=== PATIENT | male | born 1990 | race Caucasian/White ===

== ENCOUNTER 2018-03-27 08:40 | Day surgery (SDC) | payer BC ==
[~2018-03-27] VITALS: Ht 180.3 cm; Wt 76.0 kg
[2018-03-27] MEDS ORDERED: ACETAMINOPHEN 500 MG TABLET PO ONE (09:00)
[2018-03-27] MEDS ORDERED: LACTATED RINGERS 1,000 ML IV SCH (09:00)
[2018-03-27] MEDS ORDERED: LIDOCAINE-MPF 1%, 2ML INFIL ONE (09:00)
[2018-03-27] MEDS ORDERED: GABAPENTIN 300 MG CAPSULE PO ONE (09:00)
[2018-03-27] MEDS ORDERED: ONDANSETRON ODT 8 MG PO ONE (09:00)
[2018-03-27] MEDS ORDERED: IBUP-1222 PO (09:10)
[2018-03-27 09:18] VITALS: BP 127/78
[2018-03-27] MEDS ORDERED: FENTANYL PF 100 MCG/2ML ONE ×2 (11:12→12:27)
[2018-03-27] MEDS ORDERED: MIDAZOLAM 1 MG/ML, 2ML ONE (11:16)
[2018-03-27] MEDS ORDERED: BUPIVACAINE/PF-EPI 0.5% 1:200K ONE (11:27)
[2018-03-27] MEDS ORDERED: PROPOFOL 10 MG/ML, 20ML ONE (11:33)
[2018-03-27] MEDS ORDERED: CEFAZOLIN 1,000 MG ONE (11:33)
[2018-03-27] MEDS ORDERED: KETOROLAC 30 MG/1 ML ONE (12:27)
[2018-03-27] MEDS ORDERED: OXYcodone 5 MG/5 ML ORAL.SOL UDC ONE ×2 (12:28→12:41)
[2018-03-27] MEDS ORDERED: KETOROLAC 30 MG/1 ML IV PRN (12:30)
[2018-03-27] MEDS: FENTANYL PF 100 MCG/2ML IV PRN ×2 (12:30→12:41)
[2018-03-27] MEDS ORDERED: ONDANSETRON 2MG/ML, 2ML IV PRN (12:30)
[2018-03-27] MEDS ORDERED: HYDROmorphone 2 MG/ML, 1ML IVPush PRN (12:30)
[2018-03-27] MEDS: OXYcodone 5 MG/5 ML ORAL.SOL UDC PO PRN ×2 (12:31→12:42)
== END 2018-03-27 14:00 | disposition home or self-care (01) ==
LOC: OUT 08:40
PROVIDERS: ATTEND Orthopaedic Surgery
DX: M79.5 Residual foreign body in soft tissue (principal); Z88.5 Allergy status to narcotic agent; Z88.8 Allergy status to other drugs, medicaments and biological substances; Z72.89 Other problems related to lifestyle
CPT/HCPCS: 28192; 73620; 76000; J0690; J1885; J2250; J2704; J3010; J7120; Q0162

== ENCOUNTER 2018-08-27 16:00 | Emergency (ER) | payer BC, OTHER ==
[~2018-08-27] VITALS: Ht 175.3 cm; Wt 76.0 kg
[~2018-08-27 16:00] MED LIST: IBUP-1222 PO
[2018-08-27] MEDS ORDERED: LIDOCAINE-MPF 1%, 5ML ONE ×4 (16:18→18:23)
--- NOTE | 2018-08-27 16:29 | NUR ---
PT WHEELED TO ROOM WITH LACERATION TO HEAD OF PENIS ON MEATUS. PT STATES PAIN IS 10/10 AT THIS TIME. LACERATION IS BLEEDING. CHUCKS IN PLACE. PT TREMOROUS AND CRYING. PT HYPERTENSIVE AND TACHYCARDIC. EMT SETTING UP SUTURES. CALL LIGHT IN REACH. PT RESTING ON GURNEY.
[2018-08-27] MEDS ORDERED: DIPH,PERTUSS(ACELL),TET VAC/PF 0.5 ML IM-VACC ONE ×2 (16:30→16:51)
[2018-08-27] MEDS ORDERED: LIDOCAINE 1%, 10ML INFIL ONE (16:30)
[2018-08-27] MEDS ORDERED: HYDROcodone/APAP 10/325 MG TABLET ONE (16:51)
--- NOTE | 2018-08-27 16:56 | NUR ---
PT MEDICATED PER EMAR. PT RESTING ON GURNEY. STATES PAIN IS 10/10. VSS. CALL LIGHT IN REACH.
[2018-08-27] MEDS ORDERED: HYDROcodone/APAP 10/325 MG TABLET PO ONE (17:00)
[2018-08-27 17:50] VITALS: BP 126/82
--- NOTE | 2018-08-27 17:50 | NUR ---
PT RESTING ON GURNEY. AWARE OF POC. VSS. CALL LIGHT IN REACH. DENIES NEEDS.
[2018-08-27] MEDS ORDERED: NEOSPORIN OINT. PKT 1 PACKET TP ONE (18:30)
[2018-08-27] MEDS ORDERED: NEOSPORIN OINT. PKT 1 PACKET ONE (18:43)
--- NOTE | 2018-08-27 19:05 | NUR ---
REPORT TO LARA SUAREZ AND MICHELL JARRETT
--- NOTE | 2018-08-27 19:06 | NUR ---
LACERATION SUTURING PERFORMED AT BEDSIDE BY DR. DIEGO. CONSENT SIGNED. PT TOLERATED WELL. DRESSING PLACED BY DR. DIEGO. WALDRON CATHETER PLACED BY DR. DIEGO. PT EDUCATED ON HOW TO CLEANSE WOUND AND CARE FOR WALDRON. PT AWARE OF NEED TO F/U WITH DR. DIEGO IN TWO DAYS. VSS. PT RESTING ON [facility].
--- NOTE | 2018-08-27 20:12 | NUR ---
PT EDUCATED ON URINARY CATHETER CARE AND SENT HOME WITH SUPPLIES FOR WOUND CARE. PT INSTRUCTED TO FOLLOW UP WITH UROLOGIST FOR CARE OF INCISION AND CATHETER.
== END 2018-08-27 20:15 | disposition home or self-care (01) ==
LOC: ED 19:19
DX: S31.21XA Laceration without foreign body of penis, initial encounter (principal); S37.33XA Laceration of urethra, initial encounter; W26.8XXA Contact with other sharp object(s), not elsewhere classified, initial encounter; Y93.89 Activity, other specified; Y92.89 Other specified places as the place of occurrence of the external cause; Y99.8 Other external cause status
CPT/HCPCS: 12041; 90471; 90715; 99283